=== PATIENT | male | born 1960 | race Caucasian/White ===

== ENCOUNTER 2018-02-14 12:03 | Outpatient (CLI) | payer SELFPAY ==
[2018-02-15 11:29] LABS: PSA, Diagnostic 0.9 ng/ml (0-3.5)
== END 2018-02-14 12:23 ==
PROVIDERS: PCP Family Medicine; Visit Provider Urology
DX: N40.2 Nodular prostate without lower urinary tract symptoms (principal)
CPT/HCPCS: 36415; 84153

== ENCOUNTER 2018-03-02 10:14 | Outpatient (CLI) | payer SELFPAY ==
[2018-03-02 11:45] LABS: Anion Gap 8.4 mmol/L (3-11); BUN 17 mg/dL (7-18); CO2 31.6 mmol/L (21.0-32.0); CREATININE 0.72 mg/dL (0.70-1.30); Calcium 9.6 mg/dL (8.5-10.1); Chloride 99 mmol/L (98-107); Glucose 108 mg/dL (70-100); Potassium 3.9 mmol/L (3.5-5.1); Sodium 139 mmol/L (136-145)
== END 2018-03-02 10:34 ==
PROVIDERS: PCP Family Medicine; Visit Provider Urology
DX: N40.2 Nodular prostate without lower urinary tract symptoms (principal)
CPT/HCPCS: 36415; 80048

== ENCOUNTER 2018-10-17 16:17 | Outpatient (CLI) | payer BC, SELFPAY ==
[2018-10-17 18:29] LABS: Abs Immature Grans 0.02 k/cumm (0.0-0.09); Absolute Basophil Count 0.02 k/cumm (0.0-0.2); Absolute Eosinophil Count 0.06 k/cumm (0.0-0.7); Absolute Lymphocyte Count 1.74 k/cumm (1.2-3.4); Absolute Monocyte Count 0.87 k/cumm (0.11-0.7); Absolute Neutrophil Count 5.66 k/cumm (1.2-6.7); Basophils % 0.2; Eosinophils % 0.7; HCT 47.4 % (40.0-50.0); HGB 16.2 g/dL (13.5-17.5); Immature Grans % 0.2; Lymphocytes % 20.8; Mean Corp. HGB Concentration 34.2 g/dL (32.0-36.0); Mean Corpuscular Hemoglobin 31.2 pg (27.0-33.0); Mean Corpuscular Volume 91.2 fL (80-95); Mean Platelet Volume 11.3 fL (8.0-11.0); Monocytes % 10.4; Neutrophils % 67.7; Platelet Count 201 x1000/uL (130-400); RBC Distribution Width 12.6 % (11.8-14.1); White Blood Cell Count 8.37 k/cumm (4.4-10.8)
[2018-10-17 19:11] LABS: TSH (W/Ref FT4) 1.95 uIU/mL (0.358-3.74)
[2018-10-17 20:25] LABS: ESR 5 MM/HR (1-20)
== END 2018-10-17 16:37 ==
PROVIDERS: PCP Family Medicine; Visit Provider Internal Medicine
DX: R50.9 Fever, unspecified (principal); M25.562 Pain in left knee; R00.0 Tachycardia, unspecified
CPT/HCPCS: 36415; 85652; 84443; 85025

== ENCOUNTER 2019-03-16 10:22 | Outpatient (CLI) | payer BC, SELFPAY ==
[2019-03-19 11:16] LABS: PSA, Diagnostic 0.5 ng/ml (0-3.5)
== END 2019-03-16 10:42 ==
PROVIDERS: Visit Provider Urology
DX: R33.9 Retention of urine, unspecified (principal); N40.1 Benign prostatic hyperplasia with lower urinary tract symptoms
CPT/HCPCS: 36415; 84153

== ENCOUNTER 2023-11-04 12:53 | Outpatient (CLI) | payer OTHER, SELFPAY ==
[2023-11-04 22:57] LABS: PSA, Diagnostic 0.8 ng/mL (<=4.5)
== END 2023-11-04 12:54 | disposition home or self-care (01) ==
LOC: LBO 13:01
PROVIDERS: Visit Provider Urology
DX: N40.0 Benign prostatic hyperplasia without lower urinary tract symptoms (principal)
CPT/HCPCS: 36415; 84153